=== PATIENT | female | born 1990 | race Two or more races ===

== ENCOUNTER 2024-05-15 21:00 | Observation (INO) | payer OTHER ==
[~2024-05-15] VITALS: Ht 162.6 cm; Wt 93.0 kg
[2024-05-15] MEDS ORDERED: PREN-543 PO (21:30)
[2024-05-15] MEDS ORDERED: TRA200 PO (21:30)
[2024-05-15 21:31] VITALS: BP 130/82; PULSE 76; RESP 17; TEMP 97.4
== END 2024-05-15 22:05 | disposition home or self-care (01) ==
LOC: MLD 21:00
PROVIDERS: ADMIT Obstetrics & Gynecology; ATTEND Obstetrics & Gynecology
DX: O26.893 Other specified pregnancy related conditions, third trimester (principal); R42 Dizziness and giddiness; O36.8130 Decreased fetal movements, third trimester, not applicable or unspecified; Z3A.30 30 weeks gestation of pregnancy
CPT/HCPCS: G0378; G0379